=== PATIENT | male | born 1980 | race Caucasian/White ===

== ENCOUNTER 2020-04-21 17:51 | Emergency (ER) | payer OTHER, SELFPAY ==
--- NOTE | 2020-04-21 19:03 | ED.GENADULT ---
HPI - General Adult General Chief complaint: Abdominal Pain Stated complaint: abd pain left/back pain left side Time Seen by Provider: 04/21/20 19:03 Source: patient Mode of arrival: ambulatory Limitations: no limitations History of Present Illness HPI narrative: 39-year-old male patient presents to the [facility] with complaints of left lower back pain that radiates to the left lower abdomen for the past 5 days. Patient denies any specific injury to the back that he is aware of. Patient denies any pain with urination or penile discharge. Patient denies any fevers, nausea, vomiting or diarrhea. Denies any chest pain or shortness of breath. Patient states he has had issues with his urinary stream before in the past and is supposed to be seen a urologist but has not yet. Patient states he is also had diverticulitis before in the past but the pain is not similar to the pain that he had in the past. Patient states he feels like his pain mostly started in the back and now is radiating to the left lower quadrant. Related Data Home Medications Medication Instructions Recorded Confirmed Flonase Allergy Relief 04/21/20 dextroamphetamine-amphetamine 04/21/20 sertraline 04/21/20 Allergies Allergy/AdvReac Type Severity Reaction Status Date / Time No Known Allergies Allergy Verified 04/21/20 19:06 Review of Systems Review of Systems: Narrative: CONSTITUTIONAL: Denies fever, chills, or sweats. EYES: Denies visual changes, redness, or discharge. ENT: Denies rhinorrhea, congestion, sore throat, or otalgia. CARDIOVASCULAR: Denies chest pain, palpitations, or edema. RESPIRATORY: Denies cough or dyspnea. GASTROINTESTINAL: Positive left lower abdominal pain, denies nausea, vomiting, or diarrhea. GENITOURINARY: Denies dysuria or hematuria. SKIN: Denies rash or itching. MUSCULOSKELETAL: Positive left lower back pain, joint pain, or myalgia. NEUROLOGIC: Denies headache, numbness, or weakness. PSYCHIATRIC: Denies anxiety or depression. [facility] Past Medical History Medical History (Updated 04/21/20 @ 19:46 by RAHUL Stone) Diverticulitis Comments At the time of my signature I agree with nursing past medical history, surgical, social, and family history. There is no relevant family history pertinent to the presenting complaint. Exam Narrative: Exam Narrative: GENERAL: Well-appearing, well-nourished, and in no acute distress. HEAD: Normocephalic, atraumatic. EYES: PERRLA and EOMI. ENT: Nares clear, no rhinorrhea or epistaxis. Mucous membranes moist. NECK: Supple. No lymphadenopathy CHEST: Clear to auscultation. No respiratory distress. HEART: Regular rate and rhythm. No murmur heard. Normal peripheral pulses. ABDOMEN: Soft, flat, nondistended. No guarding, rebound tenderness, or rigid. No tenderness noted to the left lower quadrant on palpation. No pulsatilla masses. Bowel sounds present in all four quadrants. No organomegaly. Negative Jean?s sign. No periumbicial tenderness. No Supra public tenderness or distension. Good femoral pulses bilaterally. No hernia noted. No scars or surface trauma. No CVA tenderness on percussion EXTREMITIES: Normal range of motion. No edema. BACK: Patient is able to ambulated without assistance. Pt is seated on the stretcher in no obvouis distress. No surface trauma noted. No muscle tenderness to Palpation. No spasm or mass. No step-offs or deformity noted to the cervical, thoracic or lumbar spine to firm Palpation at the midline. No CVA tenderness to percussion. No saddle anesthesia. ROM: able to stand erect. Normal flexion, extension, Lateral bending and rotation without limitation or complaint of pain. SKIN: Warm, dry, no rash. NEURO: No focal deficits. Alert and oriented x3. Course Vital Signs Vital signs: Vital Signs Temperature 36.9 C 04/21/20 19:15 Pulse Rate 65 04/21/20 19:15 Respiratory Rate 18 04/21/20 19:15 Blood Pressure 132/95 H 04/21/20 19:15 Pulse Oximetry 99
[2020-04-21 19:15] VITALS: BP 132/95; PULSE 65; RESP 18; TEMP 36.9; O2SAT 99
--- NOTE | 2020-04-21 19:24 | PC.NURSE ---
in br to obtain ua spec.
== END 2020-04-21 20:08 | disposition home or self-care (01) ==
PROVIDERS: Emergency Provider Nurse Practitioner Family; PCP Family Medicine
DX: M54.5 Low back pain (principal)
CPT/HCPCS: 81003; 99212; G0463

== ENCOUNTER 2020-04-21 20:38 | Emergency (ER) | payer OTHER, SELFPAY ==
--- NOTE | ~2020-04-21 | CT_ITS ---
EXAMINATION: CT abdomen pelvis w con EXAM DATE: 04/21/2020 22:09 INDICATION: Left lower quadrant pain, back pain, started yesterday. TECHNIQUE: Spiral CT of the abdomen and pelvis was performed following intravenous injection of 100 m L Omnipaque 350. Axial, coronal and sagittal images were reviewed. The dose-length product (DLP) fo r this examination was 649.33 mGy-cm. The exposure was tailored according to patient size (auto mA e xposure control), and iterative reconstruction (ASIR) was used as additional dose reduction technique . There is no prior study for comparison. FINDINGS: The liver, spleen, adrenal glands and pancreas are unremarkable. There are gallstones with in an otherwise unremarkable gallbladder. No evidence of obstructive biliary disease. Portal and sp lenic veins are patent. Kidneys enhance symmetrically. There is no hydronephrosis. The prostate i s unremarkable. The bladder is unremarkable. There is no retroperitoneal or pelvic lymphadenopathy. There is mild scattered arteriosclerotic disease. The appendix is normal. The stomach and small bowel are unremarkable. There is mild to moderate desc ending and sigmoid colonic diverticulosis. There is no adjacent inflammatory change to suggest diver ticulitis. No free intraperitoneal gas. The heart is normal in size. There are no pericardial or pleural effusions. The lung bases are unremarkable. There are no osteoblastic or osteolytic lesions identified. IMPRESSION: 1. No acute intra-abdominal findings. 2. Mild to moderate colonic diverticulosis. Reviewed, dictated and finalized at location A.
[2020-04-21 20:45] VITALS: BP 143/88; PULSE 59; RESP 19; TEMP 36.4; O2SAT 100
--- NOTE | 2020-04-21 21:23 | ED.GENADULT ---
HPI - General Adult General Chief complaint: Abdominal Pain Stated complaint: LLQ pain Time Seen by Provider: 04/21/20 20:54 Source: patient History of Present Illness HPI narrative: Patient is a 39 y/o male complaining of aching left lower abdominal pain starting 5 days ago. He rates his pain as 5/10. There is no alleviating or exacerbating factor. He has no fever, chills, vomiting or diarrhea. He has been having difficulty with urination for several months. He also has some back pain. He states that he was diagnosed with diverticulitis in the past. Related Data Home Medications Medication Instructions Recorded Confirmed Flonase Allergy Relief 04/21/20 dextroamphetamine-amphetamine 04/21/20 sertraline 04/21/20 Allergies Allergy/AdvReac Type Severity Reaction Status Date / Time No Known Allergies Allergy Verified 04/21/20 21:59 Review of Systems Constitutional: Constitutional: Denies chills, Denies fever(s), Denies headache(s) and Denies weakness Eyes: Eyes: Denies blurry vision ENT: Denies headache(s) and Denies neck pain Cardiovascular: Cardiovascular: Denies chest pain and Denies dyspnea Respiratory: Respiratory: Denies cough and Denies dyspnea Gastrointestinal: Gastrointestinal: Reports abdominal pain, Denies diarrhea, Denies nausea and Denies vomiting Genitourinary: Genitourinary: Denies hematuria, Denies dysuria and Reports urinary hesitancy Musculoskeletal: Musculoskeletal: Reports back pain and Denies neck pain Neurologic: Denies headache(s) and Denies weakness PMFSH Past Medical History Medical History Diverticulitis Social History Social History Gender identity (if verbalized by the patient): Male Exam Const: General: no acute distress and well developed Orientation/consciousness: oriented to person, oriented to place, oriented to time and patient oriented x3 HENMT: Head: normocephalic Ears: external ears normal General nose exam: Normal external nose present Eyes: General: appearance normal, both eyes and all related structures Conjunctivae: conjunctivae normal Neck: Neck: normal visual inspection and full ROM Chest: Chest palpation & inspection: normal inspection of the chest and no tenderness Resp: Effort & Inspection: normal respiratory effort Auscultation: clear to auscultation bilaterally Cardio: Rate: regular rate Rhythm: regular rhythm GI: GI Palp: No abdominal tenderness and Yes Soft to palpation Skin: General skin exam: normal color and turgor normal Neuro: General: oriented to person, oriented to place, oriented to time and patient oriented x3 Cognition (Neuro): normal cognition Extrem: General: normal to inspection, full ROM and no pedal edema Psych: Appearance: grossly normal Mental Status: mental status grossly normal Affect: normal affect Course Vital Signs Vital signs: Vital Signs Temperature 36.4 C L 04/21/20 20:45 Pulse Rate 59 L 04/21/20 20:45 Respiratory Rate 19 04/21/20 20:45 Blood Pressure 143/88 H 04/21/20 20:45 Pulse Oximetry 100 04/21/20 20:45 Temperature 36.4 C L 04/21/20 20:45 Pulse Rate 57 L 04/21/20 21:51 Respiratory Rate 18 04/21/20 21:51 Blood Pressure 121/86 04/21/20 21:51 Pulse Oximetry 97 04/21/20 21:51 Medical Decision Making Vital Signs Vital Signs: Vital Signs Temperature 36.4 C L 04/21/20 20:45 Pulse Rate 59 L 04/21/20 20:45 Respiratory Rate 19 04/21/20 20:45 Blood Pressure 143/88 H 04/21/20 20:45 Pulse Oximetry 100 04/21/20 20:45 Temperature 36.4 C L 04/21/20 20:45 Pulse Rate 57 L 04/21/20 21:51 Respiratory Rate 18 04/21/20 21:51 Blood Pressure 121/86 04/21/20 21:51 Pulse Oximetry 97 04/21/20 21:51 Lab Data Result diagrams: 04/21/20 21:29 04/21/20 21:29 Labs: Lab Results 04/21/20 04/21/20 04/21/20 Rang
[2020-04-21 21:37] LABS: Basophils Absolute Auto 0.1 K/mm3 (0.0-0.1); Basophils Percent Auto 0.7 % (0.2-1.2); Eosinophils Absolute Auto 0.2 K/mm3 (0-0.3); Eosinophils Percent Auto 1.8 % (0-4.4); Hematocrit 45.3 % (42.0-52.0); Hemoglobin 15.6 g/dL (14.0-18.0); Immature Granulocyte Absolute 0.02 K/mm3 (0.00-0.031); Immature Granulocyte Percent A 0.2 % (0-0.5); Lymphocytes Absolute Auto 2.24 K/mm3 (0.9-3.2); Lymphocytes Percent Auto 26.6 % (18.3-44.2); Mean Corpuscular HGB Conc 34.4 g/dl (32-36); Mean Corpuscular Hemoglobin 32.1 pg (26-34); Mean Corpuscular Volume 93.2 fl (80-100); Mean Platelet Volume 10.7 fl (7.4-10.4); Monocytes Absolute Auto 0.7 K/mm3 (0.1-0.6); Monocytes Percent Auto 8.4 % (2.6-8.5); Neutrophils Absolute Auto 5.2 K/mm3 (1.3-6.7); Neutrophils Percent Auto 62.3 % (45.5-73.1); Platelet Count Result 268 k/mm3 (150-375); Red Blood Count 4.86 M/mm3 (4.6-6.20); Red Cell Distribution Width 11.9 % (11.5-14.5); White Blood Count 8.4 K/mm3 (4.5-10.0)
[2020-04-21 21:39] LABS: Add Urine Microscopic? NO; Appearance Urine Clear (Clear); Bilirubin Urine Negative (Negative); Blood Urine Negative (Negative); Color Urine Yellow (Yellow); Glucose Urine UA Negative (Negative); Ketones Urine Negative (Negative); Leukocyte Esterase Ur Negative LEU/UL (Negative); Nitrate Urine Negative (Negative); Protein Urine Negative (Negative); Specific Grav Ur 1.019 (1.001-1.035); Urobilinogen Urine Negative mg/dL (<2.0)
[2020-04-21 21:51] VITALS: BP 121/86; PULSE 57; RESP 18; O2SAT 97
[2020-04-21 21:51] LABS: Alanine Aminotransferase 23 U/L (4-50); Albumin Level 4.7 g/dL (3.5-5.1); Alkaline Phosphatase 93 U/L (38-126); Anion Gap 12.3 mmol/L (7-16); Aspartate Amino Transferase 21 U/L (17-59); Bilirubin,Total 1.1 mg/dL (0.2-1.3); Blood Urea Nitrogen 16 mg/dL (9-20); Calcium 9.4 mg/dL (8.4-10.2); Carbon Dioxide 27 mmol/L (22-30); Chloride 102 mmol/L (98-107); Estimated CRCL calculation 104 ml/min; Estimated Glomerular Filt Rate > 60; Glucose 97 mg/dL (75-110); Potassium 4.3 mmol/L (3.4-5.0); Sodium 137 mmol/L (137-145)
[2020-04-21] MEDS: KETOROLAC 30 MG/ML VIAL (*BKC) IV PUSH (21:56)
[2020-04-21 23:36] VITALS: BP 118/76; PULSE 57; RESP 18; O2SAT 99
== END 2020-04-21 23:37 | disposition home or self-care (01) ==
PROVIDERS: Emergency Provider Emergency Medicine; PCP Family Medicine
DX: K57.90 Diverticulosis of intestine, part unspecified, without perforation or abscess without bleeding (principal); M54.9 Dorsalgia, unspecified
CPT/HCPCS: 36415; 74177; 80053; 81003; 85025; 96374; 99284; J1885; Q9967

== ENCOUNTER 2021-06-07 19:50 | Emergency (ER) | payer OTHER, SELFPAY ==
--- NOTE | ~2021-06-07 | CT_ITS ---
EXAMINATION: CT abdomen pelvis w con DATE: 06/08/2021 01:12 INDICATION: Left lower quadrant abdominal pain. TECHNIQUE: Computed tomography (CT) of the abdomen and pelvis was performed with 100 mL Omnipaque 350 intravenous contrast. Automated exposure control and iterative reconstruction technique were employe d. The dose-length product was 492.85 mGy-cm. COMPARISON: CT abdomen and pelvis 04/21/20 FINDINGS: The visualized portions of the lung bases demonstrate minimal atelectasis. No pleural effus ion. The heart size is normal. No pericardial effusion. The liver is normal. There are gallstones in the gallbladder, which is normal in size. The pancreas, adrenal glands, and kidneys are normal. There is diverticulosis of the colon without evidence of diverticulitis. The appendix is normal. There are no pathologically enlarged lymph nodes. There is no free intraperitoneal fluid. There is mild thorac olumbar spondylosis. IMPRESSION: 1. No etiology for the patient's symptoms. 2. Cholelithiasis. Reviewed, dictated and finalized at location A.
[2021-06-07 20:26] VITALS: BP 125/88; PULSE 76; RESP 14; TEMP 36.9; O2SAT 100
[2021-06-07 20:58] LABS: Basophils Absolute Auto 0.1 K/mm3 (0.0-0.1); Basophils Percent Auto 0.9 % (0.2-1.2); Eosinophils Absolute Auto 0.2 K/mm3 (0-0.3); Eosinophils Percent Auto 1.9 % (0-4.4); Hematocrit 45.4 % (42.0-52.0); Hemoglobin 15.8 g/dL (14.0-18.0); Immature Granulocyte Absolute 0.02 K/mm3 (0.00-0.031); Immature Granulocyte Percent A 0.3 % (0-0.5); Lymphocytes Absolute Auto 1.88 K/mm3 (0.9-3.2); Lymphocytes Percent Auto 24.2 % (18.3-44.2); Mean Corpuscular HGB Conc 34.8 g/dl (32-36); Mean Corpuscular Hemoglobin 33.3 pg (26-34); Mean Corpuscular Volume 95.6 fl (80-100); Mean Platelet Volume 10.2 fl (7.4-10.4); Monocytes Absolute Auto 0.7 K/mm3 (0.1-0.6); Monocytes Percent Auto 8.7 % (2.6-8.5); Platelet Count Result 250 k/mm3 (150-375); Red Blood Count 4.75 M/mm3 (4.6-6.20); Red Cell Distribution Width 12.2 % (11.5-14.5); White Blood Count 7.8 K/mm3 (4.5-10.0)
[2021-06-07 21:02] LABS: Add Urine Microscopic? YES; Appearance Urine Clear (Clear); Bilirubin Urine Negative (Negative); Blood Urine Negative (Negative); Color Urine Yellow (Yellow); Glucose Urine UA Negative (Negative); Ketones Urine Negative (Negative); Leukocyte Esterase Ur Trace LEU/UL (Negative); Mucus Urine Rare /lpf; Nitrate Urine Negative (Negative); Protein Urine Negative (Negative); RBC Urine 0-2 /hpf (0-2); Urobilinogen Urine Negative mg/dL (<2.0); WBC Urine 0-3 /hpf
[2021-06-07 21:08] LABS: Alanine Aminotransferase 39 U/L (4-50); Albumin Level 5.1 g/dL (3.5-5.1); Alkaline Phosphatase 84 U/L (38-126); Anion Gap 9 mmol/L (8-16); Aspartate Amino Transferase 34 U/L (17-59); Bilirubin,Total 1.3 mg/dL (0.2-1.3); Blood Urea Nitrogen 16 mg/dL (9-20); Calcium 9.8 mg/dL (8.4-10.2); Carbon Dioxide 27 mmol/L (22-30); Chloride 103 mmol/L (98-107); Estimated CRCL calculation 103 ml/min; Estimated Glomerular Filt Rate > 60; Glucose 103 mg/dL (65-110); Lipase 238 U/L (23-300); Potassium 4.7 mmol/L (3.4-5.0); Sodium 139 mmol/L (137-145)
--- NOTE | 2021-06-08 00:18 | ED.ABDPAIN ---
HPI - Abdominal Pain General Chief Complaint: Abdominal Pain Stated Complaint: abd pain Time Seen by Provider: 06/08/21 00:18 Source: patient and RN notes reviewed Limitations: no limitations History of Present Illness HPI narrative: Patient presents with left lower quadrant pain started 6 days ago, started on Cipro and Flagyl 5 days ago, patient reported still having pain at the left lower quadrant. Patient denies any fever, chills, nausea, vomiting, diarrhea, constipation, urinary symptoms. Patient is fully vaccinated for COVID-19. Related Data Home Medications Medication Instructions Recorded Confirmed Flonase Allergy Relief 04/21/20 dextroamphetamine-amphetamine 04/21/20 sertraline 04/21/20 Allergies Allergy/AdvReac Type Severity Reaction Status Date / Time No Known Allergies Allergy Verified 04/21/20 21:59 Review of Systems Review of Systems: CONSTITUTIONAL: Denies fever, chills, or sweats. EYES: Denies visual changes, redness, or discharge. ENT: Denies rhinorrhea, congestion, sore throat, or otalgia. CARDIOVASCULAR: Denies chest pain, palpitations, or edema. RESPIRATORY: Denies cough or dyspnea. GASTROINTESTINAL: Denies abdominal pain, nausea, vomiting, or diarrhea. GENITOURINARY: Denies dysuria or hematuria. SKIN: Denies rash or itching. MUSCULOSKELETAL: Denies back pain, joint pain, or myalgia. NEUROLOGIC: Denies headache, numbness, or weakness. PSYCHIATRIC: Denies anxiety or depression. [facility] Past Medical History Medical History (Updated 06/08/21 @ 01:03 by Chante Clark MD) Diverticulitis Social History Social History Gender identity (if verbalized by the patient): Male Exam Narrative: General appearance: Well-developed, well-nourished Skin: Normal color Head: Normocephalic, nontraumatic Eyes: Clear conjunctiva ENT: Oropharynx normal, ears normal, nose normal Neck: Supple, nontender Chest and respiratory: Airway patent, no respiratory distress, no accessory muscle use Heart: Regular rate/rhythm Abdomen: Soft, nontender, no organomegaly, quiet bowel sounds Vascular: Normal peripheral pulses, normal capillary refill. Musculoskeletal: Normal range of motion, nontender back Neurologic: Alert and oriented ?3, [employer] CUT[employer] HAND is normal as tested, no gross motor deficit Course Course Emergency Course: Stable Vital Signs Vital signs: Vital Signs Temperature 36.9 C 06/07/21 20:26 Pulse Rate 76 06/07/21 20:26 Respiratory Rate 14 06/07/21 20:26 Blood Pressure 125/88 06/07/21 20:26 Pulse Oximetry 100 06/07/21 20:26 Temperature 36.9 C 06/07/21 20:26 Pulse Rate 63 06/08/21 00:42 Respiratory Rate 18 06/08/21 00:42 Blood Pressure 123/84 06/08/21 00:42 Pulse Oximetry 100 06/08/21 00:42 MDM - Abdominal Pain MDM Narrative Medical decision making narrative: Improving diverticulitis is my concern. Labs, CT abdomen pelvis with IV contrast, IV fluid ordered. Differential Diagnosis Differential diagnosis: Likely abdominal pain, calculus of kidney, constipation and diverticulitis Lab Data Result diagrams: 06/07/21 20:43 06/07/21 20:43 Labs: Lab Results 06/07/21 06/07/21 06/07/21 Range/Units 20:43 20:43 20:43 WBC 7.8 (4.5-10.0) K/mm3 RBC 4.75 (4.6-6.20) M/mm3 Hgb 15.8 (14.0-18.0) g/dL Hct 45.4 (42.0-52.0) % MCV 95.6 (80-100) fl MCH 33.3 (26-34) pg MCHC 34.8 (32-36) g/dl RDW 12.2 (11.5-14.5) % Plt Count 250 (150-375) k/mm3 MPV 10.2 (7.4-10.4) fl Immature Gran % (Auto) 0.3 (0-0.5) % Neut % (Auto) 64.0 (45.5-73.1) % Lymph % (Auto) 24.2 (1
[2021-06-08 00:42] VITALS: BP 123/84; PULSE 63; RESP 18; O2SAT 100
[2021-06-08] MEDS: SODIUM CHLORIDE 0.9% IV 1,000 ML 999 ML IV CONT (00:46)
[2021-06-08 02:36] VITALS: BP 140/88; PULSE 62; RESP 16; O2SAT 100
== END 2021-06-08 02:39 | disposition home or self-care (01) ==
PROVIDERS: Emergency Provider Emergency Medicine; PCP Family Medicine
DX: R10.32 Left lower quadrant pain (principal)
CPT/HCPCS: 36415; 74177; 80053; 81001; 83690; 85025; 96360; 99284; J7030; Q9967

== ENCOUNTER 2023-02-25 20:34 | Emergency (ER) | payer OTHER, SELFPAY ==
[2023-02-25 20:38] VITALS: BP 137/98; PULSE 90; RESP 17; TEMP 37.1; O2SAT 96
[2023-02-25 20:55] LABS: Basophils Absolute Auto 0.1 K/mm3 (0.0-0.1); Basophils Percent Auto 0.6 % (0.2-1.2); Eosinophils Absolute Auto 0.1 K/mm3 (0-0.3); Hematocrit 45.2 % (42.0-52.0); Hemoglobin 15.9 g/dL (14.0-18.0); Immature Granulocyte Absolute 0.04 K/mm3 (0.00-0.031); Immature Granulocyte Percent A 0.3 % (0-0.5); Lymphocytes Absolute Auto 2.06 K/mm3 (0.9-3.2); Lymphocytes Percent Auto 17.7 % (18.3-44.2); Mean Corpuscular HGB Conc 35.2 g/dl (32-36); Mean Corpuscular Hemoglobin 32.6 pg (26-34); Mean Corpuscular Volume 92.6 fl (80-100); Mean Platelet Volume 9.8 fl (7.4-10.4); Monocytes Absolute Auto 0.9 K/mm3 (0.1-0.6); Monocytes Percent Auto 7.7 % (2.6-8.5); Neutrophils Absolute Auto 8.4 K/mm3 (1.3-6.7); Neutrophils Percent Auto 72.7 % (45.5-73.1); Platelet Count Result 291 k/mm3 (150-375); Red Blood Count 4.88 M/mm3 (4.6-6.20); Red Cell Distribution Width 12.2 % (11.5-14.5); White Blood Count 11.6 K/mm3 (4.5-10.0)
[2023-02-25 21:02] LABS: Appearance Urine Clear (Clear); Bilirubin Urine Negative (Negative); Blood Urine Negative (Negative); Color Urine Yellow (Yellow); Glucose Urine UA Negative (Negative); Ketones Urine Negative (Negative); Leukocyte Esterase Ur Negative LEU/UL (Negative); Nitrate Urine Negative (Negative); Protein Urine Negative (Negative); Specific Grav Ur 1.011 (1.001-1.035); Urobilinogen Urine 0.2 mg/dL (<2.0); pH Urine 5.5 (5.0-9.0)
[2023-02-25 21:06] LABS: Alanine Aminotransferase 28 U/L (6-50); Albumin Level 4.9 g/dL (3.5-5.1); Alkaline Phosphatase 85 U/L (38-126); Anion Gap 8 mmol/L (8-16); Aspartate Amino Transferase 25 U/L (17-59); Bilirubin,Total 1.2 mg/dL (0.2-1.3); Blood Urea Nitrogen 13 mg/dL (9-20); Calcium 9.6 mg/dL (8.4-10.2); Carbon Dioxide 26 mmol/L (22-30); Chloride 103 mmol/L (98-107); Estimated CRCL calculation 113 ml/min; Estimated Glomerular Filt Rate > 60; Glucose 92 mg/dL (65-110); Lipase 44 U/L (23-300); Potassium 4.1 mmol/L (3.4-5.0); Sodium 137 mmol/L (137-145)
[2023-02-25 21:07] LABS: Add Urine Microscopic? NO
--- NOTE | 2023-02-25 21:33 | ED.NAVMDI ---
HPI - Nausea/Vomiting/Diarrhea General Chief complaint: Nausea/Vomiting/Diarrhea Stated complaint: nausea Time Seen by Provider: 02/25/23 21:23 History of Present Illness HPI Narrative: 42-year-old male reports for evaluation of nausea and general malaise x4 days. Patient reports nausea is worse after eating. Denies abdominal pain, vomiting, diarrhea, chest pain or shortness of breath, fevers, body aches or chills, cough, neck pain or back pain, focal numbness or weakness. Related Data Home Medications Medication Instructions Recorded Confirmed Flonase Allergy Relief 04/21/20 dextroamphetamine-amphetamine 10 04/21/20 mg tablet sertraline 04/21/20 Allergies Allergy/AdvReac Type Severity Reaction Status Date / Time No Known Allergies Allergy Verified 04/21/20 21:59 Review of Systems Review of Systems: CONSTITUTIONAL: Denies fever, chills EYES: Denies visual changes, redness, or discharge. ENT: Denies rhinorrhea, congestion, sore throat, or otalgia. CARDIOVASCULAR: Denies chest pain, palpitations, or edema. RESPIRATORY: Denies cough or dyspnea. GASTROINTESTINAL: See HPI GENITOURINARY: Denies dysuria or hematuria. SKIN: Denies rash or itching. MUSCULOSKELETAL: Denies back pain, joint pain, or myalgia. NEUROLOGIC: Denies headache, numbness, dizziness, or weakness. PSYCHIATRIC: Denies anxiety or depression. [facility] Past Medical History Medical History (Updated 02/26/23 @ 00:04 by Janette Borden) Diverticulitis Social History Social History Gender identity (if verbalized by the patient): Male Exam Narrative: GENERAL: Well-appearing, in no acute distress. HEAD: Normocephalic EYES: PERRLA ENT: Nares clear. Mucous membranes moist. Oropharynx without tonsillar hypertrophy exudate or other lesions. Bilateral TMs [place] nonbulging. NECK: Supple. CHEST: No respiratory distress. Clear to auscultation, no adventitious breath sounds. HEART: Regular rate and rhythm. No murmur heard. Normal peripheral pulses. ABDOMEN: Soft, nontender, normal active bowel sounds. No CVA tenderness. EXTREMITIES: Normal range of motion. No edema. SKIN: Warm, dry, no rash. NEURO: No focal deficits. Alert and oriented x3. PSYCH: Normal mood and affect. Course Vital Signs Vital signs: Vital Signs Temperature 98.7 F 02/25/23 20:38 Pulse Rate 90 02/25/23 20:38 Respiratory Rate 17 02/25/23 20:38 Blood Pressure 137/98 H 02/25/23 20:38 Pulse Oximetry 96 02/25/23 20:38 Oxygen Delivery Room Air 02/25/23 20:38 Temperature 98.7 F 02/25/23 20:38 Pulse Rate 70 02/25/23 23:15 Respiratory Rate 18 02/25/23 23:15 Blood Pressure 125/86 02/25/23 23:15 Pulse Oximetry 98 02/25/23 23:15 Oxygen Delivery Room Air 02/25/23 20:38 MDM - Nausea/Vomiting/Diarrhea MDM Narrative Medical decision making narrative: 42-year-old male reports for evaluation of nausea and general malaise x4 days. Vital stable. Exam is unremarkable, abdomen is soft and nontender. Blood work and urinalysis unremarkable. COVID and flu negative. Patient received fluids and Zofran with improvement in symptoms. Zofran sent to pharmacy and advised patient to have increased fluid intake and follow-up with PCP within the following week. Strict ED return precautions discussed. Patient agrees with the plan and verbalized understanding. Discharged in stable condition Medical Records Attestation: I reviewed the patient's medical records. Lab Data Attestation: I reviewed the patient's lab results. 02/25/23 20:48 02/25/23 20:48 Labs: Lab Results 02/25/23 02/25/23 02/25/23 Range/Units 20:45 20:48 22:01 WBC 11.6 H (4.5-10.0) K/mm3 RBC 4.88 (4.6-6.20) M/mm3 Hgb 15.9 (14.0-18.0) g/dL Hct 45.2 (42.0-52.0) % MCV 92.6 (80-100) fl MCH 32.6 (26-34) pg MCHC 35.2 (32-36) g/dl RDW 12.2 (11.
[2023-02-25 21:36] VITALS: BP 132/92; PULSE 81; RESP 16; O2SAT 96
[2023-02-25] MEDS: SODIUM CHLORIDE 0.9% IV 1,000 ML 999 ML IV CONT (21:36)
[2023-02-25] MEDS: ONDANSETRON INJ 4 MG/2 ML VIAL IV PUSH (21:36)
[2023-02-25 22:43] LABS: Influenza A QL RT-PCR Negative (Negative); Influenza B QL RT-PCR Negative (Negative); SARS-CoV-2 RNA PCR Negative (Negative)
[2023-02-25 23:15] VITALS: BP 125/86; PULSE 70; RESP 18; O2SAT 98
== END 2023-02-25 23:15 | disposition home or self-care (01) ==
PROVIDERS: Family Medicine; Emergency Provider Physician Assistant
DX: R11.0 Nausea (principal); Z20.822 Contact with and (suspected) exposure to COVID-19
CPT/HCPCS: 36415; 80053; 81003; 83690; 85025; 87636; 96361; 96374; 99284; J2405; J7030